=== PATIENT | female | born 1965 | race American Indian/Alaskan Native ===

== ENCOUNTER 2017-05-11 00:09 | Emergency (ER) | payer BC, OTHER ==
[2017-05-11 00:54] LABS: Basophils % (Auto) 0.8 % (0.0-1.8); Eosinophils % (Auto) 2.2 % (0.0-4.3); Hematocrit 40.8 % (30.3-42.9); Hemoglobin 13.6 gm/dl (10.1-14.3); Mean Corpuscular HGB Conc 33 % (30-34); Mean Corpuscular Hemoglobin 30 pg (28-32); Mean Corpuscular Volume 89 fl (79-97); Platelet Count 285 K/mm3 (140-440); Red Cell Distribution Width 12.8 % (13.2-15.2); White Blood Count 6.4 K/mm3 (4.5-11.0)
[2017-05-11 01:10] LABS: Alanine Aminotransferase 381 units/L (7-56); Albumin 4.1 g/dL (3.9-5); Albumin/Globulin Ratio 1.7 %; Alkaline Phosphatase 94 units/L (35-129); Anion Gap 17 mmol/L; BUN/Creatinine Ratio 15; Blood Urea Nitrogen 9 mg/dL (7-17); Calcium 9.8 mg/dL (8.4-10.2); Carbon Dioxide 29 mmol/L (22-30); Chloride 99.5 mmol/L (98-107); Glucose 128 mg/dL (65-100); Lipase 75 units/L (13-60); Potassium 3.4 mmol/L (3.6-5.0); Sodium 142 mmol/L (137-145); Total Protein 6.5 g/dL (6.3-8.2)
[2017-05-11 08:38] LABS: Bilirubin,Urine NEG (Negative); Blood,Urine NEG (Negative); Ketones,Urine NEG (Negative); Leukocyte Esterase,Urine NEG (Negative); Mucus,Urine FEW /HPF; Nitrite,Urine NEG (Negative)
[2017-05-11] MEDS ORDERED: NACL 0.9% 1000 ML 1,000 ML IV ONE (09:27)
[2017-05-11] MEDS ORDERED: DILAUDID IV ONE (09:27)
[2017-05-11] MEDS ORDERED: ZOFRAN IV ONE (09:27)
--- NOTE | 2017-05-11 09:28 | Emergency Department Report ---
ED Abdominal Pain HPI - General Chief Complaint: Abdominal Pain Stated Complaint: FLANK PAIN Time Seen by Provider: 05/11/17 09:16 Source: patient, RN notes reviewed Mode of arrival: Ambulatory Limitations: No Limitations - History of Present Illness Initial Comments: This is a 51-year-old female who was previously unknown to this provider, her primary care doctor is Dr. Howe, she reports a past medical history of hypertension and cholecystectomy in 2005. Patient presents to the ER with a complaint of right upper quadrant pain that radiates to the back. This has been intermittent for one month. It increases with palpation and decreases with rest. It is not associated with food. Patient reports 2 episodes of nonbloody, nonbilious emesis. No severe headache , neck pain, chest pain, shortness of breath, urinary symptoms. Patient denies recently taking acetaminophen. MD Complaint: abdominal pain -: Gradual Location: RUQ, epigastric Radiation: back Quality: cramping, aching Consistency: intermittent Improves With: rest Worsens With: movement Associated Symptoms: nausea, vomiting. denies: diarrhea, fever, chills, constipation, dysuria, hematemesis, hematochezia, melena, hematuria, anorexia, syncope - Related Data Home Medications Medication Instructions Recorded Confirmed Last Taken Lisinopril 1 tab PO DAILY 05/11/17 05/11/17 05/11/17 Previous Rx's Medication Instructions Recorded Last Taken Type Dicyclomine [Bentyl] 10 mg PO QID PRN #20 capsule 05/11/17 Unknown Rx Ibuprofen [Motrin] 600 mg PO Q8H PRN #30 tablet 05/11/17 Unknown Rx Ondansetron [Zofran Odt] 4 mg PO Q8HR PRN #20 tab.rapdis 05/11/17 Unknown Rx oxyCODONE [Roxicodone TAB] 5 mg PO Q6HR PRN #10 tablet 05/11/17 Unknown Rx Allergies Allergy/AdvReac Type Severity Reaction Status Date / Time No Known Allergies Allergy Verified 05/11/17 00:19 ED Review of Systems ROS: Stated complaint: FLANK PAIN Other details as noted in HPI ED Past Medical Hx - Past Medical History Hx Hypertension: Yes - Surgical History Hx Cholecystectomy: Yes Additional Surgical History: fibroid surgery 2007 - Social History Smoking Status: Never Smoker Substance Use Type: None - Medications Home Medications: Home Medications Medication Instructions Recorded Confirmed Last Taken Type Dicyclomine [Bentyl] 10 mg PO QID PRN #20 capsule 05/11/17 Unknown Rx Ibuprofen [Motrin] 600 mg PO Q8H PRN #30 tablet 05/11/17 Unknown Rx Lisinopril 1 tab PO DAILY 05/11/17 05/11/17 05/11/17 History Ondansetron [Zofran Odt] 4 mg PO Q8HR PRN #20 tab.rapdis 05/11/17 Unknown Rx oxyCODONE [Roxicodone TAB] 5 mg PO Q6HR PRN #10 tablet 05/11/17 Unknown Rx ED Physical Exam - General Limitations: No Limitations General appearance: alert, in no apparent distress, obese - Head Head exam: Present: atraumatic, normocephalic - Eye Eye exam: Present: normal appearance, EOMI - ENT ENT exam: Present: normal exam, normal orophraynx, mucous membranes moist, normal external ear exam - Neck Neck exam: Present: normal inspection, full ROM. Absent: tenderness, meningismus - Respiratory Respiratory exam: Present: normal lung sounds bilaterally. Absent: respiratory distress, wheezes, rales, rhonchi, stridor, chest wall tenderness - Cardiovascular Cardiovascular Exam: Present: regular rate, normal rhythm, normal heart sounds. Absent: systolic murmur, diastolic murmur, rubs, gallop - GI/Abdominal GI/Abdominal exam: Present: soft, tenderness, normal bowel sounds, other (there is right upper quadrant tenderness.). Absent: distended, guarding, rebound, rigid, pulsatile mass - Extremities Exam Extremities exam: Present: normal inspection, full ROM, normal capillary refill. Absent: pedal edema, joint swelling, calf tenderness - Back Exam Back exam: Present: normal inspection, full ROM. Absent: tenderness, CVA tenderness (R), paraspinal tenderness, vertebral tenderness - Neurological Exam Neurological exam: Present: alert, oriented X3, CN II-XII intact, normal gait, other (Extraocular movements intact. Tongue midline. No facial droop. Facial sensation intact to light touch in the V1, V2, V3 distribution bilaterally. 5 and 5 strength in 4 extremities.. Sensation is intact to light touch in 4 extremities.). Absent: motor sensory deficit - Psychiatric Psychiatric exam: Present: normal affect, normal mood - Skin Skin exam: Present: warm, dry, intact, normal color. Absent: rash ED Course Vital Signs 05/11/17 05/11/17 05/11/17 00:16 07:36 09:56 Temperature 98.2 F 98.4 F 98.3 F Pulse Rate 77 55 L 73 Respiratory 18 18 18 Rate Blood Pressure 177/93 Blood Pressure 185/107 161/85 [Left] O2 Sat by Pulse 99 98 100 Oximetry - Reevaluation(s) Reevaluation #1: 05/11/17 09:44 Differential diagnosis, including when not limited to: Medical hepatitis, biliary obstruction, malignancy Assessment and plan: 51-year-old female with epigastric and right upper quadrant pain for one month, getting worse, somewhat tender, history of cholecystectomy, no jaundice or scleral icterus, liver function tests elevated, bilirubin elevated, CT scan of the abdomen and pelvis with IV contrast is ordered, hepatitis panel was ordered, patient will be given pain medication and nausea medication. Reevaluation #2: 05/11/17 11:45 Patient feels improved. Abdomen soft on repeat exam. The patient is tolerating liquid feeds. CT scan of the abdomen and pelvis demonstrates findings consistent with history of cholecystectomy but no obstruction. Patient will be discharged with pain medication, nausea medication, instructions to follow up with outpatient gastroenterology, return precautions are reviewed. ED Medical Decision Making - Lab Data Result diagrams: 05/11/17 00:29 05/11/17 00:29 Vital Signs 05/11/17 05/11/17 00:16 07:36 Temperature 98.2 F 98.4 F Pulse Rate 77 55 L Respiratory 18 18 Rate Blood Pressure 177/93 Blood Pressure 185/107 [Left] O2 Sat by Pulse 99 98 Oximetry Lab Results 05/11/17 05/11/17 05/11/17 Range/Units 00:29 00:29 07:27 WBC 6.4 (4.5-11.0) K/mm3 RBC 4.60 (3.65-5.03) M/mm3 Hgb 13.6 (10.1-14.3) gm/dl Hct 40.8 (30.3-42.9) % MCV 89 (79-97) fl MCH 30 (28-32) pg MCHC 33 (30-34) % RDW 12.8 L (13.2-15.2) % Plt Count 285 (140-440) K/mm3 Lymph % (Auto) 16.0 (13.4-35.0) % Gove % (Auto) 10.6 H (0.0-7.3) % Eos % (Auto) 2.2 (0.0-4.3) % Baso % (Auto) 0.8 (0.0-1.8) % Lymph # 1.0 L (1.2-5.4) K/mm3 Gove # 0.7 (0.0-0.8) K/mm3 Eos # 0.1 (0.0-0.4) K/mm3 Baso # 0.1 (0.0-0.1) K/mm3 Seg Neutrophils % 70.4 H (40.0-70.0) % Seg Neutrophils # 4.5 (1.8-7.7) K/mm3 Sodium 142 (137-145) mmol/L Potassium 3.4 L (3.6-5.0) mmol/L Chloride 99.5 (98-107) mmol/L Carbon Dioxide 29 (22-30) mmol/L Anion Gap 17 mmol/L BUN 9 (7-17) mg/dL Creatinine 0.6 L (0.7-1.2) mg/dL Estimated GFR > 60 ml/min BUN/Creatinine Ratio 15 % Glucose 128 H (65-100) mg/dL Calcium 9.8 (8.4-10.2) mg/dL Total Bilirubin 3.00 H (0.1-1.2) mg/dL AST 584 H (5-40) units/L ALT 381 H (7-56) units/L Alkaline Phosphatase 94 (35-129) units/L Total Protein 6.5 (6.3-8.2) g/dL Albumin 4.1 (3.9-5) g/dL Albumin/Globulin Ratio 1.7 % Lipase 75 H (13-60) units/L Urine Color Janet (Yellow) Urine Turbidity Clear (Clear) Urine pH 7.0 (5.0-7.0) Ur Specific Hammond 1.019 (1.003-1.030) Urine Protein 30 mg/dl (Negative) mg/dL Urine Glucose (UA) Neg (Negative) mg/dL Urine Ketones Neg (Negative) mg/dL Urine Blood Neg (Negative) Urine Nitrite Neg (Negative) Urine Bilirubin Neg (Negative) Urine Urobilinogen 4.0 (<2.0) mg/dL Ur Leukocyte Esterase Neg (Negative) Urine WBC (Auto) 1.0 (0.0-6.0) /HPF Urine RBC (Auto) 10.0 (0.0-6.0) /HPF U Epithel Cells (Auto) 10.0 (0-13.0) /HPF Urine Mucus Few /HPF - Radiology Data Radiology results: report reviewed, image reviewed CT scan of the abdomen and pelvis with IV contrast: Status post cholecystectomy , no obvious biliary obstruction, uterine fibroids incidentally noted Critical care attestation.: If time is entered above; I have spent that time in minutes in the direct care of this critically ill patient, excluding procedure time. ED Disposition Clinical Impression: Hepatitis Disposition: DC-01 TO HOME OR SELFCARE Is pt being admited?: No Does the pt Need Aspirin: No Condition: Stable Additional Instructions: Do not take Tylenol until cleared by either her primary care doctor or home teaching [employer] teacher. Blood pressure was elevated, and should be followed up by a primary care doctor within the next month. Long-term complications of hypertension and elevated blood pressure include stroke, heart attack, disability, , paralysis, loss of quality of life. Follow-up with a home teaching grades [employer] teacher within the next 7-10 days. [facility] has a patient service hotline: 1.865.GO.TO.ROSY (733.1404) Take the pain medication, nausea medication as directed. Do not consume alcohol , do not consume acetaminophen. Do not take metformin for the next 2-3 days, if you take this medication. Return to the ER right away with new pain, worsened pain, migration of pain, fevers, chills, lethargy, irritability, projectile vomiting, change in mental status, confusion, inability to tolerate liquid feeds. Referrals: TEJAL VILLAFUERTE [Primary Care Provider] - 3-5 Days [facility] [Provider Group] - 3-5 Days
[2017-05-11] MEDS ORDERED: K-DUR PO ONE (09:46)
[2017-05-11 09:50] LABS: Bilirubin,Direct 1.2 mg/dL (0-0.2); Bilirubin,Indirect 1.8 mg/dL
[2017-05-11 09:57] VITALS: BP 161/85
--- NOTE | 2017-05-11 11:11 | Cat Scan Report ---
CT of the abdomen and pelvis with IV contrast. History: Abdominal pain. Findings: The liver is normal in size and configuration. There is minimal dilatation of the intrahepatic biliary tree. The common duct measures 1 cm in diameter which is upper limits of normal for post cholecystectomy patient. No intraluminal density is seen. The spleen is normal. The pancreas is normal. The kidneys are normal in size and configuration. There is no adenopathy within the retroperitoneum. The uterus is markedly enlarged and heterogeneous. The ovaries are slightly prominent in size bilaterally. The right ovary measures 3.8 cm in maximum diameter. There may be a small left ovarian cyst. No mesenteric inflammation. There is no radiographic evidence of appendicitis. There are no abnormal fluid collections. Impression: 1. Marked uterine enlargement and heterogeneity most like to representing multiple uterine fibroids. Both ovaries are slightly prominent with a probable left ovarian cyst noted. 2. Status post cholecystectomy with mild biliary dilatation although no obstructing lesion is seen.
== END 2017-05-11 12:14 | disposition home or self-care (01) ==
LOC: ED 00:09
DX: K75.9 Inflammatory liver disease, unspecified (principal); I10 Essential (primary) hypertension; Z90.49 Acquired absence of other specified parts of digestive tract
CPT/HCPCS: 36415; 74177; 80053; 81001; 81025; 82248; 83690; 85025; 96361; 96374; 96375; 99284; J1170; J2405; J7030; Q9967